=== PATIENT | female | born 1975 | race Caucasian/White ===

== ENCOUNTER 2016-06-23 10:23 | Emergency (ER) | payer BC ==
[~2016-06-23] VITALS: Ht 162.6 cm; Wt 80.0 kg
[~2016-06-23 10:23] MED LIST: IBUP-232 PO; PERI8.6T PO; VENTAER INH
[2016-06-23 10:27] VITALS: BP 111/74; PULSE 84; RESP 18; TEMP 98; O2SAT 98
[2016-06-23] MEDS ORDERED: KETOROLAC TROMETHAMINE 60 MG/2 ML (IM) VIAL IM ONE (11:00)
[2016-06-23] MEDS ORDERED: ORPHENADRINE INJ 60 MG/2 ML AMP IM ONE (11:00)
--- NOTE | 2016-06-23 11:21 | PD ---
HPI Chief Complaint: Pain: Acute or Chronic Time Seen by Provider: 11:00 Travel History International Travel<30 days: No Contact w/Intl Traveler<30days: No Traveled to known affect area: No History of Present Illness HPI 41-year-old female presents to the emergency department for evaluation of left shoulder pain after she lifted her baby into a carriage this morning and felt a tear in her left shoulder. She states the pain is worse with movement. Patient denies any history of left shoulder injury. She has no other complaints. No chest pain or shortness breath. No abdominal pain. No nausea or vomiting. No paresthesias. She denies any chance of . PFSH Past Medical History Asthma: Yes Anxiety: Yes Diminished Hearing: No ?: Not LMP: 05/24/16 : 3 Para: 2 Miscarriage: 0 : 0 Social History Alcohol Use: No Tobacco Use: No Substance Use: No Allergies-Medications (Allergen,Severity, Reaction): Uncoded Allergies: monistat 3 (Adverse Reaction, Intermediate, 04/06/14) Reported Meds & Prescriptions Reported Meds & Active Scripts Active Reported Shayy-Colace (Sennosides-Docusate Sodium) 8.6-50 Mg Tab 2 Tab PO Q12HR PRN Ibuprofen 600 Mg Tab 600 Mg PO Q6H PRN Ventolin Hfa 18 GM Inh (Albuterol Sulfate) 90 Mcg/Act Aer 1 Puff INH Q4H PRN Review of Systems Except as stated in HPI: all other systems reviewed are Neg Physical Exam Narrative GENERAL: Well-developed well-nourished female patient, ambulatory. Afebrile. SKIN: Warm and dry. HEAD: Normocephalic. Atraumatic. EYES: No scleral icterus. No injection or drainage. NECK: Supple, trachea midline. No JVD or lymphadenopathy. CARDIOVASCULAR: Regular rate and rhythm without murmurs, gallops, or rubs. Left radial pulse is 2+. Capillary refill is less than 2 seconds to the digits of the left hand. RESPIRATORY: Breath sounds equal bilaterally. No accessory muscle use. Lungs sounds are clear to auscultation. GASTROINTESTINAL: Abdomen soft, non-tender, nondistended. MUSCULOSKELETAL: No cyanosis, or edema. Patient has tenderness over left scapula. This pain is exacerbated movement of the left arm. BACK: Nontender without obvious deformity. No CVA tenderness. Data Data Last Documented VS Vital Signs Date Time Temp Pulse Resp B/P Pulse Ox O2 Delivery O2 Flow Rate FiO2 06/23/16 10:27 98.0 84 18 111/74 98 Orders Shoulder, Complete (>2vws) (06/23/16 ) Scapula (06/23/16 ) Ketorolac Inj (Toradol Inj) (06/23/16 11:00) Orphenadrine Inj (Norflex Inj) (06/23/16 11:00) MDM Medical Decision Making Medical Screen Exam Complete: Yes Emergency Medical Condition: Yes Medical Record Reviewed: Yes Interpretation(s) x-ray left shoulder - CONCLUSION: No acute fracture. X-ray left scapula - CONCLUSION: No acute fracture. Differential Diagnosis Muscle strain versus spasm versus fracture versus dislocation Narrative Course 41-year-old female presents to the emergency department for evaluation of left shoulder pain. Patient appears uncomfortable on exam. X-ray left shoulder and scapula are ordered and pending. Patient is given Toradol 60 mg IM and Norflex 60 mg IM for pain. X-ray left shoulder and left scapula showed no acute fracture. Patient be given a prescription for Lortab for pain as she appears uncomfortable on exam. She is instructed to follow-up with orthopedist for possible MRI if the pain continues or worsens. The patient is agreeable to this plan. The patient was discharged in stable condition with instructions, including return instructions and follow up instructions. Diagnosis Primary Impression: Left shoulder pain Qualified Code: M25.512 - Acute pain of left shoulder Referrals: Orthopedist call for appointment Patient Instructions: General Instructions, Shoulder Pain (ED) Additional Instructions: Wear sling as needed for comfort. Take Lortab as directed as needed for pain. Caution this can make you drowsy so do not drive after taking. Ice for 20 minutes 4-5 times daily. Follow-up with an orthopedist. Return to the emergency department for any acute worsening of symptoms. Med/Other Pt SpecificInfo: Prescription(s) given Scripts Hydrocodone-Acetaminophen (Lortab)5-325 Mg Tab1 Tab PO Q6H PRN (PAIN) #16 TAB Ref 0 Prov:Zaheer Torres MD 06/23/16 Disposition: 01 DISCHARGE HOME Condition: Stable Sonia Lowry Jun 23, 2016 11:21
--- NOTE | 2016-06-23 11:51 | RADRPT ---
EXAM DATE/TIME: 06/23/2016 11:17 [facility] COMPARISON: No previous studies available for comparison. INDICATIONS : Lifting injury. Left scapula and back pain. MEDICAL HISTORY : None. SURGICAL HISTORY : None. ENCOUNTER: Initial ACUITY: 1 day PAIN SCORE: 9/10 LOCATION: Left scapula FINDINGS: Two view examination of the left scapula demonstrates no evidence of fracture. The glenohumeral and acromioclavicular joints are maintained. Bony mineralization is normal. CONCLUSION: No acute fracture. Tobin King MD on June 23, 2016 at 11:48 Board Certified Radiologist. This report was verified electronically.
--- NOTE | 2016-06-23 11:52 | RADRPT ---
EXAM DATE/TIME: 06/23/2016 11:18 [facility] COMPARISON: No previous studies available for comparison. INDICATIONS : Lifting injury. Scapula and back pain. MEDICAL HISTORY : None. SURGICAL HISTORY : None. ENCOUNTER: Initial ACUITY: 1 day PAIN SCORE: 9/10 LOCATION: Left scapula FINDINGS: Multiple view examination of the left shoulder demonstrates no evidence of fracture or dislocation. The glenohumeral and acromioclavicular joints are maintained. There is normal range of motion betwee n internal and external rotation. Bony mineralization is normal. CONCLUSION: No acute fracture. Tobin King MD on June 23, 2016 at 11:50 Board Certified Radiologist. This report was verified electronically.
[2016-06-23] MEDS ORDERED: HYDR-3533 PO (11:55)
== END 2016-06-23 12:12 | disposition home or self-care (01) ==
LOC: NEPB 10:23
DX: M25.512 Pain in left shoulder (principal); J45.909 Unspecified asthma, uncomplicated
CPT/HCPCS: 73010; 73030; 96372; 99283; J1885; J2360